=== PATIENT | female | born 1975 | race Caucasian/White ===

== ENCOUNTER 2024-05-12 19:47 | Emergency (ER) | payer OTHER, SELFPAY ==
[2024-05-12 19:57] VITALS: BP 120/79; PULSE 70; TEMP 36.7; O2SAT 99; BMI 26.1
--- NOTE | 2024-05-12 20:01 | XR_ITS ---
[facility] [id number] Patient Name: GRAYSON HOANG MRN: [id number] date: 1975 Sex: F Assigned Patient Location: ER Current Patient Location: Accession/Order Number: [id number] Exam Date: 05/12/2024 20:10 Report Date: 05/12/2024 21:14 At the request of: LILY MARKER Procedure: XR knee RT 3V EXAM: XR knee RT 3V , 05/12/2024 HISTORY: injury 1 yr ago - chronic pain COMPARISON: None. TECHNIQUE: X-rays of the right knee, 3 views. FINDINGS: No fracture or dislocation right knee. Mild degenerative changes are seen. No evidence of knee joint effusion. XR/XR knee RT 3V IMPRESSION: Mild degenerative changes right knee. Electronically authenticated by: AZAM HUTCHINS Date: 05/12/2024 21:14
--- NOTE | 2024-05-12 20:06 | ED.GENADUL1 ---
HPI HPI - General Adult General Chief complaint: Extremity Injury, Lower Stated complaint: Lower Extremity Pain Time Seen by Provider: 05/12/24 20:05 Source: patient Mode of arrival: walk-in Limitations: no limitations History of Present Illness HPI narrative: This 48-year-old female presents for evaluation of ongoing right knee pain. Patient states she was involved in gymnastics when she was younger and thinks that that caused ongoing injury to her knees bilaterally but the left one is not bothering her at this time. 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 She alternates Tylenol and Motrin for pain and wears a copper sleeve over her knee which does give her some relief. She states she has been told in the past that her knee pain was due to arthritis and other times she has been told that it was a torn meniscus. She has never had an MRI. She was seeing Dr. Daryn Parker at [facility] but states he is no longer there and she wishes to be referred to somebody else. She has had several stripping procedures for varicose veins on her legs. She has no calf swelling or tenderness. She states at this time the pain is mostly on the medial aspect of her knee but she does have some swelling in the lateral aspect as well. He denies any chest pain or shortness of breath. She denies any recent injury. Related Data Home Medications ?Medication ?Instructions ?Recorded ?Confirmed levothyroxine 200 mcg tablet 200 mcg PO DAILY 05/12/24 05/12/24 Allergies Allergy/AdvReac Type Severity Reaction Status Date / Time No Known Drug Allergies Allergy Verified 05/12/24 20:00 Opioid HPI Opioid Management Most Recent Opioid Data: Last Pain Scale 5 05/12/24 20:29 Review of Systems ROS Status of ROS 10 or more systems reviewed and unremarkable except as noted in history and below Exam Narrative Exam Narrative: Vital signs and Nursing Notes reviewed: Patient is afebrile with a normal pulse, normal blood pressure, she is not hypoxic with pulse ox of 99% on room air General: Awake, alert, oriented, no acute distress, lying comfortably on the stretcher HEENT: Normocephalic atraumatic, mucous membranes are moist and pink, eyes are clear, normal conjunctiva, vision is grossly intact Chest: Lungs are clear to auscultation with good air entry, there is no wheezing rhonchi or rales appreciated no accessory muscle use, patient is speaking in complete sentences-no chest wall tenderness to palpation CVS: Regular rate and rhythm S1-S2, no murmurs rubs or gallops, pulses are brisk and equal bilaterally Extremities: Moving all extremities, there is mild tenderness and swelling to the lateral aspect of the right knee, there is no bony deformity or notable swelling noted. The joint is stable. There is no crepitus, no pain with valgus or varus strain. No calf swelling or tenderness. Feet are warm and sensate. There are multiple nonthrombosed close veins on both lower extremities. Skin: Normal in appearance without rash,pallor, petechiae or purpura Neuro: No focal deficits Constitutional Vital Signs, click to edit/add: Last Vital Signs Temp 98.1 F 05/12/24 19:57 Pulse 70 05/12/24 19:57 Resp 18 05/12/24 19:57 BP 120/79 05/12/24 19:57 Pulse Ox 99 05/12/24 19:57 O2 Del Method Room Air 05/12/24 19:57 Course Vital Signs Vital signs: Vital Signs Temperature 98.1 F 05/12/24 19:57 Pulse Rate 70 05/12/24 19:57 Respiratory Rate 18 05/12/24 19:57 Blood Pressure 120/79 05/12/24 19:57 Pulse Oximetry 99 05/12/24 19:57 Oxygen Delivery Method Room Air 05/12/24 19:57 Temperature 98.1 F 05/12/24 19:57 Pulse Rate 70 05/12/24 19:57 Respiratory Rate 18 05/12/24 19:57 Blood Pressure 120/79 05/12/24 19:57 Pulse Oximetry 99 05/12/24 19:57 Oxygen Delivery Method Room Air 05/12/24 19:57 Medical Decision Making MDM Narrative Medical decision making narrative: This 48-year-old female presents for evaluation of chronic right knee pain. 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 She has varicose veins in both legs and states she has had surgeries on her veins in the past but has been having knee pain for several years. She denies any recent injury. She has some mild swelling and tenderness at the lateral aspect of the knee. There is no crepitus noted on full extension. The joint is stable. There is no tenderness with valgus or varus strain. There is no calf swelling or tenderness. X-ray of the extremity does not show any acute abnormalities. She will be referred to outpatient orthopedics for further evaluation and treatment at her request. She states that she has been told in the past that her knee pain is from arthritis and also been told that she has a torn meniscus however she has never had an MRI. The physician she was formally seeing is no longer in practice according to her. She will be discharged home with a prescription for ibuprofen 600 mg. Discharge Plan Discharge Stand Alone Forms: Work/School Release, Portal Instructions Chief Complaint: Extremity Injury, Lower Clinical Impression: Arthralgia of knee, right Patient Disposition: Home, Self-Care Time of Disposition Decision: 20:49 Condition: Good Prescriptions / Home Meds: No Action levothyroxine 200 mcg tablet 200 mcg PO DAILY Print Language: Ghanaian Instructions: Knee Pain (ED), Arthralgia (ED) Referrals: Physician,Non-Staff, [Primary Care Provider] - 1 week Matt Amezquita MD [Physician] - 1 week
--- NOTE | 2024-05-12 20:10 | PC.NURSE ---
Pt to room Complains of rt knee pain for 3 years. Pt has seen 2 orthopedics, had an injections but states that each has told her something different. Pt states that she wears a copper sleeve at work. states that it hurts when she is up but is worse when she sits then stands up.
== END 2024-05-12 20:59 | disposition home or self-care (01) ==
PROVIDERS: Emergency Provider Emergency Medicine; Family Provider Family Medicine
DX: M25.561 Pain in right knee (principal)
CPT/HCPCS: 73562; 99283